=== PATIENT | male | born 1960 | race Caucasian/White ===

== ENCOUNTER 2018-04-25 16:12 | Emergency (ER) | payer OTHER ==
[~2018-04-25] VITALS: Ht 172.7 cm; Wt 153.3 kg
[2018-04-25 16:33] VITALS: Ht 172.7 cm; Wt 153.3 kg
[2018-04-25 21:25] VITALS: BP 131/88
== END 2018-04-25 21:25 | disposition home or self-care (01) ==
LOC: ED 16:12
DX: M71.21 Synovial cyst of popliteal space [Baker], right knee (principal); E11.9 Type 2 diabetes mellitus without complications
CPT/HCPCS: J1885; Q0092